=== PATIENT | male | born 1955 ===

== ENCOUNTER 2018-12-10 18:58 | Emergency (ER) | payer SELFPAY ==
[2018-12-10] MEDS ORDERED: NORMAL SALINE 1,000 ML IV.SOLN IV ONE (20:21)
[2018-12-20 08:26] LABS: BASOPHILS % 0.3 % (0.0-1.5); NEUTROPHILS # 6.3 # k/uL (1.4-7.7)
[2018-12-20 08:27] LABS: eGFR (Non-African) > 60
== END 2018-12-10 20:39 ==
LOC: ED 18:58
DX: G89.29 Other chronic pain (principal); M54.9 Dorsalgia, unspecified; R42 Dizziness and giddiness
CPT/HCPCS: 80053; 80320; 85025; 93005; 99283; 99284; J7030; G0480